=== PATIENT | female | born 1975 | race African-American/Black ===

== ENCOUNTER 2023-01-22 13:15 | Outpatient (AMB) | payer OTHER, SELFPAY ==
--- NOTE | 2023-01-22 13:20 | MHC.PC.OV ---
Vital Signs 01/22/23 13:21 Height 5 ft 7.75 in Weight 202 lb BMI 30.9 BP 125/82 Blood Pressure Location Lt brachial Position Sitting Pulse 85 Pulse Source Pulse Oximeter Pulse Oximetry (%) 100 Oxygen Delivery Method Room Air Intake Visit Reasons: Annual PE Intake Note: Pt is here today for PE. Pt states that she would like to get a referral to [employer]. Allergies hazelnut Allergy (Verified 01/22/23 13:32) deadly allergy moxifloxacin [From Avelox] Allergy (Verified 01/22/23 13:32) severe rash bumps itchiness penicillin V Allergy (Verified 01/22/23 13:32) severe rash bumps Sulfa (Sulfonamide Antibiotics) Allergy (Verified 01/22/23 13:32) Vomiting oatmeal Allergy (Uncoded 01/22/23 13:32) rash Medication List - Last Reconciled 01/22/23 by Geno Ugarte MD cetirizine (Zyrtec) 10 mg PO DAILY PRN Tobacco use date assessed: 01/22/23 Dental Screening Dental Screen Date: 01/22/23 Did you have a dental visit in the last 12 months?: Yes Did you have a dental problem in the last 6 months where you did not have access to dental care?: No Was dental information given to patient?: Patient has dentist HPI Annual PE HPI Details 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 Pt's father and paternal uncle from colon ca last year. Patient had an episode of noticing fresh blood per rectum on the tissue but not mixed with the stool 2 weeks ago. Patient denies abdominal pain constipation or has not had any recurrent symptoms of rectal bleeding. FORMERLY [facility], [facility] Family History (Updated 01/22/23 @ 13:38 by Diya Munoz Brandon) Father Hypertension Colon cancer Mother Hypertension Paternal Grandmother Lung cancer Social History (Updated 01/22/23 @ 14:17 by Geno Ugarte MD) Household Members Other:: lives alone, Housing: House Patient Tobacco Use Status: Never used Tobacco e-Cigarette/Vaping Use: Never Used Current occupational status: employed Cognitive needs: No Hearing needs: No Vision needs: Yes Questionnaire PHQ-9 Over the last 2 weeks, how often have you been bothered by any of the following problems? 1. Little interest or pleasure in doing things: not at all 2. Feeling down, depressed, or hopeless: not at all 3. Trouble falling or staying asleep, or sleeping too much: not at all 4. Feeling tired or having little energy: not at all 5. Poor appetite or overeating: not at all 6. Feeling bad about yourself - or that you are a failure or have let yourself or your family down: not at all 7. Trouble concentrating on things, such as reading the newspaper or watching television: not at all 8. Moving or speaking so slowly that other people could have noticed. Or the opposite - being so fidgety or restless that you have been moving around a lot more than usual: not at all 9. Thoughts that you would be better off or of hurting yourself in some way: not at all Total score: 0 Depression Screening Interpretation: Negative Depression Screening Done: Yes Source: Developed by Drs. Solitario Mejia, Ariana Copeland, Lucas Mcgowan and colleagues, with an educational rick from [employer]. Thrive Questionnaire Date Thrive assessed: 01/22/23 I am a: Patient What is your living situation today?: I have a steady place to live Within the past 12 months, did the food you bought not last and you didn't have the money to get more?: Never true Within the past 12 months, did you worry whether your food would run out before you got money to buy more?: Never true Do you have trouble paying for medicines?: No Do you have trouble getting transportation to medical appointments?: No Do you have trouble paying your heating and electricity bill?: No Do you have trouble taking care of your child, family member or friend?: No Do you have trouble with day-to-day activities such as bathing, preparing meals, shopping, managing finances, etc.?: No Are you currently unemployed and looking for a job?: No Are you interested in more education?: No Please select the resources that you would like help with: None Currently or been in a relationship where the following occur: no concerns reported AUDIT C Alcohol Use Questionnaire (AUDIT-C) 1. How often do you have a drink containing alcohol?: 2-3 times a week 2. How many drinks containing alcohol do you have on a typical day when you are drinking?: 1 or 2 3. How often do you have six or more drinks on one occasion?: Never Total Score: 3 SANFORD-7 AMB Questionnaire SANFORD-7 Date SANFORD - 7 assessed: 01/22/23 Feeling nervous, anxious, or on edge: 0 = Not at all Not being able to stop or control worryin = Not at all Worrying too much about different things: 0 = Not at all Trouble relaxin = Not at all Being so restless that it is hard to sit still: 0 = Not at all Becoming easily annoyed or irritable: 0 = Not at all Feeling afraid as if something awful might happen: 0 = Not at all Total SANFORD-7 score (0-4 normal; 5-9 mild; 10-14 moderate; 15-21 severe): 0 Source: Developed by Drs. Solitario Mejia, Ariana Copeland, Lucas Mcgowan and colleagues, with an educational rick from [employer]. Review of Systems Const All systems reviewed & are unremarkable except as noted in HPI and below Reports no additional complaints Eyes Reports no additional complaints ENT Reports no additional complaints Card Reports no additional complaints Resp Reports no additional complaints GI Reports no additional complaints Reports no additional complaints Physical exam (Primary Care) Vital Signs: Last Vital Signs Pulse 85 01/22/23 13:21 BP 142/82 H 01/22/23 13:21 Pulse Ox 100 01/22/23 13:21 Oxygen Delivery Method Room Air 01/22/23 13:21 BMI result Body Mass Index 30.9 Tobacco/Smoking Status: Tobacco use Status Tobacco use date assessed 01/22/23 01/22/23 13:39 Patient Tobacco Use Status Never used Tobacco 01/22/23 14:17 e-Cigarette/Vaping Use Never Used 01/22/23 14:17 PHQ-9: PHQ-9 Score PHQ-9: Total score 0 01/22/23 14:31 Depression Screening Interpretation: Negative Thrive Assessment: Date of Thrive Assessment Date Thrive assessed 01/22/23 01/22/23 14:31 Currently or been in a relationship where the following occur: no concerns reported Const General: no acute distress HENMT Head: Yes normal to inspection Ears: hearing grossly normal bilaterally Mouth: Normal oral and palatal mucosa present Eyes General: appearance normal, both eyes and all related structures Neck Neck: Yes no lymphadenopathy and Yes supple Resp Effort & Inspection: normal respiratory effort Auscultation: clear to auscultation bilaterally Cardio Rhythm: regular rhythm Heart sounds: S1 normal heart sound present and S2 normal heart sound present GI Inspection: Yes normal to inspection Palpation (GI): Soft to palpation Percussion: Yes normal to percussion Auscultation: normal bowel sounds Assessment and Plan Assessment & Plan (1) Rectal bleeding: Code(s): K62.5 - Hemorrhage of anus and rectum Plan: Referred to GI for colonoscopy. For any recurrent rectal bleeding patient was advised to call (2) Annual physical exam: Code(s): Z00.00 - Encounter for general adult medical examination without abnormal findings Plan: Well-balanced diet regular physical activity discussed with the patient. She will return for fasting blood work. Mammogram will be scheduled. 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 Panel Fast Today K62.5 - Hemorrhage of anus and rectum, Z00.00 - Encounter for general adult medical examination without abnormal findings Follicle Stimulating Hormone Today K62.5 - Hemorrhage of anus and rectum, Z00.00 - Encounter for general adult medical examination without abnormal findings Complete Blood Count Auto Diff Today K62.5 - Hemorrhage of anus and rectum, Z00.00 - Encounter for general adult medical examination without abnormal findings MM screening mammo BI Today Z12.31 - Encounter for screening mammogram for malignant neoplasm of breast Referrals Gastroenterology Referral K62.5 - Hemorrhage of anus and rectum Allergy & Immunology Referral J30.2 - Other seasonal allergic rhinitis Medications: New epinephrine for 2 doses 0.3 mg (0.3 mL) IM Q10M PRN 2 ea 4RF anaphylaxis Coding Level of Care Code New Pt Prev Care 40-64y(08201) Diagnoses Rectal bleeding K62.5 Annual physical exam Z00.00 Seasonal allergies J30.2
[2023-01-22 13:21] VITALS: BP 125/82; PULSE 85; O2SAT 100; BMI 30.9
== END 2023-01-22 15:05 | disposition home or self-care (01) ==
PROVIDERS: PCP Internal Medicine; Visit Provider Internal Medicine
DX: K62.5 Hemorrhage of anus and rectum (principal); Z00.00 Encounter for general adult medical examination without abnormal findings; J30.2 Other seasonal allergic rhinitis
CPT/HCPCS: 99386

== ENCOUNTER 2023-01-25 07:07 | Outpatient (REF) | payer OTHER, SELFPAY ==
[2023-01-25 11:54] LABS: MANUAL DIFF FLAG NO
[2023-01-25 12:03] LABS: Basophils Percent Auto 0.3 % (0-2); Eosinophils Absolute Auto 0.2 X10*3/uL (0.0-0.4); Eosinophils Percent Auto 3.2 % (0-4); Hematocrit 42.7 % (37.0-47.0); Hemoglobin 13.8 g/dl (12.0-16.0); Imm Gran Abs Auto 0.02 X10*3/uL (0.00-0.03); Imm Gran Pct Auto 0.3 % (0.0-0.4); Lymphocytes Absolute Auto 2.3 X10*3/uL (1.2-4.9); Lymphocytes Percent Auto 36.9 % (20-40); Mean Corpuscular HGB Conc 32.3 g/dl (31.0-35.0); Mean Corpuscular Hemoglobin 28.2 pg (27.0-33.0); Mean Corpuscular Volume 87.1 fL (80.0-98.0); Mean Platelet Volume 11.9 fL (9.4-12.3); Monocytes Absolute Auto 0.5 X10*3/uL (0.1-1.2); Monocytes Percent Auto 7.9 % (2-11); Neutrophils Absolute Auto 3.2 x10*3/uL (2.0-8.3); Neutrophils Percent Auto 51.4 % (45-73); Platelet Count 171 X10*3/uL (160-400); White Blood Count 6.2 X10*3/uL (4.8-10.8)
[2023-01-25 13:11] LABS: Alanine Aminotransferase 12 U/L (0-31); Alkaline Phosphatase 60 U/L (39-117); Anion Gap 13 (12-20); Aspartate Amino Transferase 21 U/L (5-31); Bilirubin Total 0.2 mg/dL (0.0-1.0); Blood Urea Nitrogen 14 mg/dL (9-16); Calcium 9.3 mg/dL (8.4-10.2); Carbon Dioxide 24 mmol/L (22-29); Chloride 107 mmol/L (96-108); Cholesterol 224 mg/dL (<200); Estimated Glomerular Filt Rate > 60; Glucose Fasting 86 mg/dL (60-99); HDL Cholesterol 78 mg/dL (>40); LDL Cholesterol Calculated 133 mg/dL (<100); Sodium 140 mmol/L (135-145); Total Protein 7.3 g/dL (6.5-8.0); Triglycerides 68 mg/dL (<150)
[2023-01-25 13:14] LABS: TSH reflex Free T4 0.87 uIU/mL (0.32-4.0)
[2023-01-26 09:34] LABS: Follicle Stimulating Hormone 29.4 mIU/mL
== END 2023-01-25 07:08 | disposition home or self-care (01) ==
LOC: HO.HMGCLDS 07:07
PROVIDERS: PCP Internal Medicine; Visit Provider Internal Medicine
DX: Z00.00 Encounter for general adult medical examination without abnormal findings (principal); K62.5 Hemorrhage of anus and rectum
CPT/HCPCS: 36415; 80053; 80061; 83001; 84443; 85025

== ENCOUNTER 2023-02-07 08:19 | Outpatient (AMB) | payer OTHER, SELFPAY ==
--- NOTE | 2023-02-07 08:32 | MHC.OFFVIS ---
Intake Vital Signs 02/07/23 08:33 Height 5 ft 7.75 in Weight 198 lb 6.656 oz BMI 30.4 BP 122/91 H Blood Pressure Location Lt brachial Position Sitting Pulse 100 Intake Visit Reasons: Colonoscopy Screening Intake Note: Sweta presents in the office as a colonoscopy screening. CC: She states that she has Colon cancer in her family. Allergies pollen extracts Allergy (Mild, Verified 02/07/23 08:46) Unknown tree nut Allergy (Mild, Verified 02/07/23 08:46) Unknown hazelnut Allergy (Verified 02/07/23 08:46) deadly allergy moxifloxacin [From Avelox] Allergy (Verified 02/07/23 08:46) severe rash bumps itchiness penicillin V Allergy (Verified 02/07/23 08:46) severe rash bumps Sulfa (Sulfonamide Antibiotics) Allergy (Verified 02/07/23 08:46) Vomiting raw onions Allergy (Mild, Uncoded 02/07/23 08:46) Unknown seeds Allergy (Mild, Uncoded 02/07/23 08:46) Unknown oatmeal Allergy (Uncoded 02/07/23 08:46) rash Medication List - Last Reconciled 02/07/23 by Guadalupe Mcleod PA-C cetirizine (Zyrtec) 10 mg PO DAILY PRN epinephrine 0.3 mg (0.3 mL) IM Q10M PRN HPI HPI Comments History of Present Illness Details A 47 y/o female referred for screening colonoscopy- episode or rectal bleeding-she has not had any further occurrence-remove she admits to extremely anxiety She had a colonoscopy in her 20s No abdominal pain- normal bowel pattern She eats healthy- she drinks a lot of soda-no acid reflux Her mother has UGI issues- sibs are healthy- No nausea, vomiting, hematemesis, hematochezia fever chills PFSH Surgical History Hx of tooth extraction Hx of arthroscopic knee surgery Hx of colonoscopy Family History Father Hypertension Colon cancer Mother Hypertension Paternal Grandmother Lung cancer Maternal Grandmother Cancer Paternal Uncle Colon cancer Maternal Grandfather Acute basophilic leukemia Paternal Grandmother Lung cancer Family/Other Hodgkin disease Social History Household Members Other:: lives alone, Housing: House Patient Tobacco Use Status: Never used Tobacco e-Cigarette/Vaping Use: Never Used Current occupational status: employed Cognitive needs: No Hearing needs: No Vision needs: Yes Review of Systems Const All systems reviewed & are unremarkable except as noted in HPI and below Card Denies chest pain and Denies dyspnea Resp Denies dyspnea GI Denies abdominal pain, Denies hematochezia, Denies change in bowel habits, Denies heartburn, Denies nausea and Denies vomiting Psych Reports anxiety Physical Exam Vital Signs: Last Vital Signs Pulse 100 02/07/23 08:33 BP 122/91 H 02/07/23 08:33 BMI result Body Mass Index 30.4 Const General: healthy appearing, comfortable and no acute distress Orientation/consciousness: patient oriented x3 Limitations: no limitations Eyes Sclerae: sclerae normal Resp Effort & Inspection: normal respiratory effort and able to speak in complete sentences Auscultation: clear to auscultation bilaterally, no crackles, no rales and no rhonchi Cardio Rate: regular rate (jul) Rhythm: regular rhythm Heart sounds: S1 normal heart sound present and S2 normal heart sound present GI Palpation (GI): Soft to palpation and nontender Auscultation: normal bowel sounds Skin General skin exam: no rashes or lesions noted Neuro General: patient oriented x3 Extrem General: Yes full ROM Psych Appearance: grossly normal and well kempt Mental Status: mental status grossly normal Speech and movement: Pressured speech present Affect: normal affect and Anxious affect present Attitude: cooperative Thought process: Normal thought process present Thought content: Normal thought content present Insight: Good insight present (Psych) Judgement: Good judgement present (Psych) Assessment & Plan Assessment & Plan (1) Rectal bleeding: Comment: may be hemorrhoid Code(s): K62.5 - Hemorrhage of anus and rectum Plan: Index screening colonoscopy Maintain high-fiber diet avoid straining Plan Colonoscopy- MG prep Orders: Orders Colonoscopy - GI Use Only Today K62.5 - Hemorrhage of anus and rectum Medications: New polyethylene glycol 3350 (Miralax) Take as directed by mouth the day before your procedure. 238 grams PO ONCE PRN 238 grams 0RF laxative effect 1 day bisacodyl (Dulcolax (bisacodyl)) Day before procedure, prep day Take 4 tablets by mouth upon awakening followed by large glass of water 20 mg (4 x 5 mg) PO ONCE 4 tabs 0RF colonoscopy prep 1 day Z12.11 - Encounter for screening for malignant neoplasm of colon Patient Instructions: Very anxious, 47-year-old female couple episodes of rectal bleeding now resolved due for index screening colonoscopy Colonoscopy- MG prep-information given Maintain high-fiber Avoid straining Coding Level of Care Code New Pt Level 3 (62584) Diagnoses Rectal bleeding K62.5 Time Spent (min) 30
[2023-02-07 08:33] VITALS: BP 122/91; PULSE 100; BMI 30.4
== END 2023-02-07 09:20 | disposition home or self-care (01) ==
PROVIDERS: PCP Internal Medicine; Visit Provider Physician Assistant
DX: K62.5 Hemorrhage of anus and rectum (principal)
CPT/HCPCS: 99203

== ENCOUNTER → 2023-02-07 08:19 | Outpatient (BNVA) | payer OTHER, SELFPAY | PROVIDERS: PCP Internal Medicine; Visit Provider Physician Assistant ==

== ENCOUNTER 2023-03-08 07:20 | Outpatient (REF) | payer OTHER, SELFPAY ==
--- NOTE | ~2023-03-08 | MM_ITS ---
EXAMINATION: MM SCREENING DIGITAL BREAST TOMOSYNTHESIS, BILATERAL CLINICAL INFORMATION: Screening. Asymptomatic. COMPARISON: Mammography: There are no prior mammograms available for comparison. The patient indicates her last mammogram was in 2013. TECHNIQUE: Digital breast tomosynthesis is performed in both the craniocaudal and mediolateral oblique views along with computer-aided detection (CAD). Synthesized 2D images are generated from the tomosynthesis. FINDINGS: The breasts are heterogeneously dense, which may obscure small masses (ACR BI-RADS breast composition Category c). There are no significant masses, abnormal calcifications, or other abnormalities. MM/MM tomosynthesis screening BI IMPRESSION: No mammographic evidence of malignancy. ASSESSMENT: BI-RADS BI-RADS 1 - Negative RECOMMENDATION: Routine annual mammography screening. 1 year F/U This examination should not preclude the clinical evaluation of a suspicious palpable abnormality. This patient's information was entered into a reminder system with a target due date for their next mammogram.
== END 2023-03-08 07:21 | disposition home or self-care (01) ==
LOC: HO.MAMMO 07:20
PROVIDERS: PCP Internal Medicine; Visit Provider Internal Medicine
DX: Z12.31 Encounter for screening mammogram for malignant neoplasm of breast (principal)
CPT/HCPCS: 77063; 77067

== ENCOUNTER → 2023-03-08 07:30 | Outpatient (BNV) | payer OTHER, SELFPAY | PROVIDERS: PCP Internal Medicine; Visit Provider Radiology Diagnostic Radiology | DX: Z12.31 Encounter for screening mammogram for malignant neoplasm of breast (principal) | CPT/HCPCS: 77063; 77067 ==

== ENCOUNTER 2023-06-06 06:20 | Day surgery (SDC) | payer OTHER, SELFPAY ==
[2023-06-04 11:39] VITALS: BMI 31.0
--- NOTE | 2023-06-05 10:37 | P.CONAN_ITS ---
Documented by User: Juany Amezcua NP 06/05/23 10:38 HPI - Anesthesia Eval Consult details Narrative: 47yo F for Colonoscopy PMFSH Active Problems Active Problems: All Active Problems (Updated 02/07/23 @ 08:45 by Guadalupe Mcleod PA-C) Seasonal allergies (Acute) Annual physical exam (Acute) Rectal bleeding (Acute) Family History Family History Father Hypertension Colon cancer Mother Hypertension Paternal Grandmother Lung cancer Maternal Grandmother Cancer Paternal Uncle Colon cancer Maternal Grandfather Acute basophilic leukemia Paternal Grandmother Lung cancer Family/Other Hodgkin disease Surgical History Surgical History Hx of tooth extraction Hx of arthroscopic knee surgery Hx of colonoscopy Social History Social History Household Members Other:: lives alone, Housing: House Patient Tobacco Use Status: Never used Tobacco e-Cigarette/Vaping Use: Never Used Use of substances other than those prescribed or required for medical reasons: No Are you DNR?: No Advance Directives: No Advance Directives Information Provided: Yes Current occupational status: employed Cognitive needs: No Hearing needs: No Vision needs: Yes Meds Allergies Allergy/AdvReac Type Severity Reaction Status Date / Time pollen extracts Allergy Mild Unknown Verified 06/06/23 06:37 tree nut Allergy Mild Unknown Verified 06/06/23 06:37 hazelnut Allergy deadly Verified 06/06/23 06:37 allergy moxifloxacin [From Avelox] Allergy severe Verified 06/06/23 06:37 rash bumps itchiness penicillin V Allergy severe Verified 06/06/23 06:37 rash bumps Sulfa (Sulfonamide Allergy Vomiting Verified 06/06/23 06:37 Antibiotics) raw onions Allergy Mild Unknown Uncoded 02/07/23 08:46 seeds Allergy Mild Unknown Uncoded 02/07/23 08:46 oatmeal Allergy rash Uncoded 02/07/23 08:46 Home Medications Medication Instructions Recorded Confirmed Last Taken Type cetirizine 10 mg capsule (Zyrtec) 10 mg PO DAILY PRN Allergic 01/22/23 06/06/23 Unknown History Symptoms Exam Height,Weight and Vital Signs: Height 5 ft 7 in Weight 89.811 kg Pertinent Lab Results Pertinent Lab Results: Laboratory Tests 01/25/23 07:18 WBC 6.2 Hgb 13.8 Hct 42.7 Plt Count 171 Sodium 140 Potassium 4.0 Chloride 107 Carbon Dioxide 24 BUN 14 Creatinine 0.86 Assessment and Plan Assessment Anesthesia Assessment: Chart Reviewed Documented by User: Vahid Curran MD 06/06/23 07:04 FORMERLY [facility] Past Medical History Functional capacity: independent ambulation Patient : No Family History Family History Father Hypertension Colon cancer Mother Hypertension Paternal Grandmother Lung cancer Maternal Grandmother Cancer Paternal Uncle Colon cancer Maternal Grandfather Acute basophilic leukemia Paternal Grandmother Lung cancer Family/Other Hodgkin disease Family history of problems with anesthesia: No Surgical History Surgical History Hx of tooth extraction Hx of arthroscopic knee surgery Hx of colonoscopy History of Problems with Anesthesia: No Social History Social History Household Members Other:: lives alone, Housing: House Patient Tobacco Use Status: Never used Tobacco e-Cigarette/Vaping Use: Never Used Use of substances other than those prescribed or required for medical reasons: No Are you DNR?: No Advance Directives: No Advance Directives Information Provided: Yes Current occupational status: employed Cognitive needs: No Hearing needs: No Vision needs: Yes Meds Allergies Allergy/AdvReac Type Severity Reaction Status Date / Time pollen extracts Allergy Mild Unknown Verified 06/06/23 06:37 tree nut Allergy Mild Unknown Verified 06/06/23 06:37 hazelnut Allergy deadly Verified 06/06/23 06:37 allergy moxifloxacin [From Avelox] Allergy severe Verified 06/06/23 06:37 rash bumps itchiness penicillin V Allergy severe Verified 06/06/23 06:37 rash bumps Sulfa (Sulfonamide Allergy Vomiting Verified 06/06/23 06:37 Antibiotics) raw onions Allergy Mild Unknown Uncoded 02/07/23 08:46 seeds Allergy Mild Unknown Uncoded 02/07/23 08:46 oatmeal Allergy rash Uncoded 02/07/23 08:46 Home Medications Medication Instructions Recorded Confirmed Last Taken Type cetirizine 10 mg capsule (Zyrtec) 10 mg PO DAILY PRN Allergic 01/22/23 06/06/23 Unknown History Symptoms Exam Airway Mallampati Class: I TM Dist: >3cm Neck ROM: Full Loose/Missing/Broken Teeth: No Heart: rrr Lungs: cta b/l Assessment and Plan Assessment Anesthesia Assessment: Anesthesia Plan Discussed and Chart Reviewed Final Anesthetic Review Family History of Problems with Anesthesia: No History of Problems with Anesthesia: No NPO: Yes ASA Class: I Final Preanesthetic Review: No Changes in Pt Med Stat, Meds/Allgs Chart Reviewed, Consent Obtained/Reviewed and Anes Risks/Benef Reviewed Patient Risk: Low Procedure Risk: Low Anesthetic Plan Anesthetic Plan: MAC: Disposition: Standard PACU
[2023-06-06 06:38] VITALS: BMI 30.6
--- NOTE | 2023-06-06 06:38 | MHC.SHP ---
Pre-Procedural Eval Section A - 24 Hr Update-Section A only Date of Service: 06/06/23 Section B - Complete if H&P > 30 days Chief Complaint: screening Details of Present Illness: second deg realtives with colon cancer Relevant Family History (Specify if Yes): Yes Relevant Social History: None Present Medications: see Short Stay Collaborative assessment Medical History: Significant History (allergies-seasonal) History of Previous Operations: Relevant previous surgery/procedure and date(s) (Hx of tooth extraction Hx of arthroscopic knee surgery Hx of colonoscopy) Allergies: Allergies Allergy/AdvReac Type Severity Reaction Status Date / Time pollen extracts Allergy Mild Unknown Verified 06/06/23 06:37 tree nut Allergy Mild Unknown Verified 06/06/23 06:37 hazelnut Allergy deadly Verified 06/06/23 06:37 allergy moxifloxacin [From Avelox] Allergy severe Verified 06/06/23 06:37 rash bumps itchiness penicillin V Allergy severe Verified 06/06/23 06:37 rash bumps Sulfa (Sulfonamide Allergy Vomiting Verified 06/06/23 06:37 Antibiotics) raw onions Allergy Mild Unknown Uncoded 02/07/23 08:46 seeds Allergy Mild Unknown Uncoded 02/07/23 08:46 oatmeal Allergy rash Uncoded 02/07/23 08:46 Review of Systems Sugical H&P ROS: Negative: Constitution, Cardiovascular, Respiratory, Neurological, Psychiatric, Hem-Onc, Allergic/Immunologic, Gastrointestinal, Genitourinary, Musculoskeletal, Integumentary, Endocrine and Eyes/Ears/Nose/Throat Exam Surgical H&P Exam: Normal: HEENT, Normal: Heart, Normal: Lungs, Normal: Extremities, Normal: Abdomen, Normal: Skin and Normal: Neurological Plan Diagnosis/Plan: Unchanged I have reviewed the history and physical and performed a pertinent physical examination on my patient. No changes have occurred unless specified. Time Spent With Patient Time: Total time managing care of this patient today ____ minutes.
[2023-06-06 06:47] VITALS: BP 141/94; PULSE 102; RESP 15; TEMP 36.5; O2SAT 98
[2023-06-06] MEDS: Lactated Ringers 1,000 ML 100 ML IVCONT (07:07)
[2023-06-06 07:11] LABS: UPreg QC Valid YES; Urine Pregnancy NEGATIVE (NEGATIVE)
--- NOTE | 2023-06-06 07:42 | P.OP_ITS ---
Operative Note Operative Note Date of Service: 06/06/23 Narrative: Operative Information Procedure Description: Colonoscopy Indication: screening Anesthesia: MAC COLONOSCOPY Instrument: Olympus variable stiffness pediatric scope 190L Colonoscopy Monitoring: Vital signs and clinical assessment, continuous EKG monitoring, Pulse oximetry, Carbon Dioxide monitoring and blood pressure monitoring were done throughout the procedure. Colon withdrawal time was 10 minutes. Procedure: The patient was placed in the left lateral decubitis position and pre-procedure medications were administered. After a digital rectal examination of the ano-rectum, the video colonoscope was inserted into the rectum and advanced through the colon to the cecum/TI. The colonoscope was slowly withdrawn in a retrograde panoramic fashion and the colon mucosa was carefully examined including a retroflexed view of the rectum. Findings and interventions are described below. Procedure Difficulty: easy Findings: Terminal Ileum-normal Cecum:normal Ascending Colon: normal Transverse Colon -normal Descending Colon:normal Sigmoid Colon: 15-18 mm pedunculated polyp noted in distal sigmoid, injected with epinephrine then removed with hot snare with x 2 clips applied for hemostasis. Rectum: Retroflexion with small internal hemorrhoids, grade I Anorectum - normal Colon preparation: [place] Bowel Preparation Scale Right colon; 2 Transverse colon: 3 Left colon; 3 (0 = Unprepared colon segment with mucosa not seen due to solid stool that cannot be cleared. 1 = Portion of mucosa of the colon segment seen, but other areas of the colon segment not well seen due to staining, residual stool and/or opaque liquid. 2 = Minor amount of residual staining, small fragments of stool and/or opaque liquid, but mucosa of colon segment seen well. 3 = Entire mucosa of colon segment seen well with no residual staining, small fragments of stool or opaque liquid) Impression and Post Procedure Diagnosis: polyp internal hemorrhoids Plan: High fiber diet leaflet Avoid straining at stool, epsom salts and sitz bath, anusol supps or cream Repeat Colonoscopy in 3 years due to polyp or earlier if clinically indicated Above findings were reviewed with the patient and relevant handouts were provided if indicated.
[2023-06-06 08:13] VITALS: BP 108/69; PULSE 83; RESP 16; TEMP 36.3; O2SAT 97
[2023-06-06 08:28] VITALS: BP 115/79; PULSE 77; RESP 16; O2SAT 98
--- NOTE | 2023-06-06 08:32 | PC.NURSE ---
dr. be requested me to open up intelviewer so he could show the patient the polyp that he did remove. dr. be at bedside with patient.
[2023-06-06 08:43] VITALS: BP 111/75; PULSE 66; RESP 16; TEMP 36.3; O2SAT 99
== END 2023-06-06 09:10 | disposition home or self-care (01) ==
PROVIDERS: Nurse Practitioner; PCP Internal Medicine; Visit Provider Internal Medicine Gastroenterology
PROC: 0DJD8ZZ Inspection of Lower Intestinal Tract, Via Natural or Artificial Opening Endoscopic (ICD-10-PCS; CPT 45378; principal; 2023-06-06 07:30)
DX: Z12.11 Encounter for screening for malignant neoplasm of colon (principal); Z80.0 Family history of malignant neoplasm of digestive organs; D12.5 Benign neoplasm of sigmoid colon; K64.0 First degree hemorrhoids; J30.2 Other seasonal allergic rhinitis; Z79.899 Other long term (current) drug therapy; Z88.1 Allergy status to other antibiotic agents; Z88.2 Allergy status to sulfonamides
CPT/HCPCS: 45385; 45381; 81025; 88305; J0171; J2250; J2704

== ENCOUNTER → 2023-06-06 06:20 | Outpatient (BNV) | payer OTHER, SELFPAY | PROVIDERS: PCP Internal Medicine; Visit Provider Internal Medicine Gastroenterology | DX: Z12.11 Encounter for screening for malignant neoplasm of colon (principal); K63.5 Polyp of colon; K64.8 Other hemorrhoids; Z80.9 Family history of malignant neoplasm, unspecified | CPT/HCPCS: 45385 ==

== ENCOUNTER 2023-06-20 10:16 | Outpatient (AMB) | payer OTHER, SELFPAY ==
--- NOTE | 2023-06-20 10:19 | MHC.OFFVIS ---
Intake Vital Signs 06/20/23 10:27 BP 150/91 H Blood Pressure Location Lt brachial Position Sitting Pulse 92 Intake Visit Reasons: S/P [place]; Dr. Shaffer Intake Note: Sweta presents in the office as a follow up colonoscopy. CC: She states that she is concerned cause she has colon cancer in her family. Medical Office Secretary Required: No Allergies pollen extracts Allergy (Mild, Verified 06/20/23 10:23) Unknown tree nut Allergy (Mild, Verified 06/20/23 10:23) Unknown hazelnut Allergy (Verified 06/20/23 10:23) deadly allergy moxifloxacin [From Avelox] Allergy (Verified 06/20/23 10:23) severe rash bumps itchiness penicillin V Allergy (Verified 06/20/23 10:23) severe rash bumps Sulfa (Sulfonamide Antibiotics) Allergy (Verified 06/20/23 10:23) Vomiting raw onions Allergy (Mild, Uncoded 06/20/23 10:23) Unknown seeds Allergy (Mild, Uncoded 06/20/23 10:23) Unknown oatmeal Allergy (Uncoded 06/20/23 10:23) rash HPI HPI Comments History of Present Illness Details A 47 y/o female her after colonoscopy- she is extremely emotional-with fears for cancer-multiple cancers in the family- she admits to extreme anxiety-she is the oldest her family feels responsible Father had colon/ bladder cancer- Mother lung cancer MGF- CRC Puncle -CRC/ breast- Reviewed procedure report, path and recommendations- she became very anxious- crying-\ Discussed pathophysiology colon polyp/colon cancer- Reviewed again pathology report in detail Discussed high fiber diet-she has many food allergies-very picky as to what to add- She has no nausea, vomiting, hematemesis, hematochezia fever chills PFSH Surgical History Hx of tooth extraction Hx of arthroscopic knee surgery Hx of colonoscopy Family History Father Hypertension Colon cancer Mother Hypertension Paternal Grandmother Lung cancer Maternal Grandmother Cancer Paternal Uncle Colon cancer Maternal Grandfather Acute basophilic leukemia Paternal Grandmother Lung cancer Family/Other Hodgkin disease Social History Household Members Other:: lives alone, Housing: House Patient Tobacco Use Status: Never used Tobacco e-Cigarette/Vaping Use: Never Used Current occupational status: employed Cognitive needs: No Hearing needs: No Vision needs: Yes Review of Systems Const All systems reviewed & are unremarkable except as noted in HPI and below Card Denies chest pain and Denies dyspnea Resp Denies dyspnea Psych Reports anxiety Physical Exam Vital Signs: Last Vital Signs Pulse 92 06/20/23 10:27 BP 150/91 H 06/20/23 10:27 Const General: cooperative, healthy appearing and anxious Orientation/consciousness: patient oriented x3 Limitations: no limitations Eyes Other: Tearful Resp Effort & Inspection: normal respiratory effort and able to speak in complete sentences Skin General skin exam: no rashes or lesions noted Neuro General: patient oriented x3 Extrem General: Yes full ROM Psych Appearance: grossly normal and well kempt Speech and movement: Clear speech present Affect: Animated affect present and Anxious affect present Thought content: Phobia(s) present Results Reviewed Results Reviewed: Sigmoid Colon: 15-18 mm pedunculated polyp noted in distal sigmoid, injected with epinephrine then removed with hot snare with x 2 clips applied for hemostasis. Rectum: Retroflexion with small internal hemorrhoids, grade I Anorectum - normal Colon preparation: [place] Bowel Preparation Scale Right colon; 2 Transverse colon: 3 Left colon; 3 (0 = Unprepared colon segment with mucosa not seen due to solid stool that cannot be cleared. 1 = Portion of mucosa of the colon segment seen, but other areas of the colon segment not well seen due to staining, residual stool and/or opaque liquid. 2 = Minor amount of residual staining, small fragments of stool and/or opaque liquid, but mucosa of colon segment seen well. 3 = Entire mucosa of colon segment seen well with no residual staining, small fragments of stool or opaque liquid) Impression and Post Procedure Diagnosis: polyp internal hemorrhoids Plan: High fiber diet leaflet Avoid straining at stool, epsom salts and sitz bath, anusol supps or cream Repeat Colonoscopy in 3 years due to polyp or earlier if clinically indicated yasmin: Sweta Sanchez Age/Sex: 47/F Attending: Genoveva Shaffer MD : 1975 Submitted by: Genoveva Shaffer MD Copies to: Geno Ugarte MD MR #: [id number] Status: [facility] Collected: 06/06/23 Location: [facility] Received: 06/06/23 Diagnosis Colon, sigmoid, polypectomy: Tubular adenoma; negative for high-grade dysplasia or carcinoma. Clinical History Pre-Op Dx: Screening Post-Op Dx: Colon polyp, internal hemorrhoids. Microscopic Description Microscopic sections reviewed. Material Received Sigmoid polyp Gross Description Received in formalin labeled ?sigmoid polyp? is a 1.2 x 1.2 x 0.9 cm congested and hemorrhagic red- maroon pedunculated polyp with an attached 1.0 cm in length and 0.6 cm in diameter de la torre stalk. The resected base is inked and the specimen is sectioned and entirely submitted in a cassette labeled A. CEDS Copies To Geno Ugarte MD [address] [place] [address] Dr. Fabiola [place] [id number] Genoveva Shaffer MD [address] [place] [address] Dr. Elsa MA [id number] NOTE: Unless otherwise stated, all tissue is formalin-fixed and paraffin-embedded. Some or all of the immunohistochemical tests reported herein may have been developed and their performance characteristics determined by [facility]. They have not been cleared or approved by the U.S. Food and Drug Administration (FDA). However, the FDA has determined that such clearance or approval is not necessary. This laboratory is certified under the Clinical Laboratory Improvement Amendments of 1988 (CLIA) as qualified to perform high complexity clinical laboratory testing. Electronically Signed By: Larry Dia MD 06/07/23 1218 Patient: Sweta Sanchez Age/Sex: 47/F MR#: [id number] Page 1 of 1 Assessment & Plan Assessment & Plan (1) Cancer phobia: Comment: Multiple family history cancer-extremely anxious Reviewed family history-seems to be candidate for genetic testing will send for eval-hopefully this offered her reassurance- Code(s): F40.298 - Other specified phobia Plan: refer for eval genetic testing-as there expertise will serve her well (2) Tubular adenoma: Comment: No dysplasia, no carcinoma Code(s): D36.9 - Benign neoplasm, unspecified site Plan: Review Colonoscopy [address] Shaffer (3) Anxiety: Comment: May likely benefit from formal eval, support Gave her opportunity to ask questions was very receptive- Code(s): F41.9 - Anxiety disorder, unspecified Plan: Reassurance, support (4) Hemorrhoids: Code(s): K64.9 - Unspecified hemorrhoids Plan: Maintain high-fiber Avoid straining Plan genetic testing- referral sent- seems to fit criteria- Patient Instructions: Repeat asymptomatic colonoscopy 1year We have scheduled her an appointment, for an office visit, to be seen in 9 months-to keep her on schedule She is aware referral was sent for evaluation for genetic testing Reviewed high-fiber diet, menu choices literature given She may trial to fiber gummies the have been beneficial Encouraged to call with any questions or concerns Coding Level of Care Code New Pt Level 4 (01977) Diagnoses Cancer phobia F40.298 Tubular adenoma D36.9 Anxiety F41.9 Hemorrhoids K64.9 Time Spent (min) 30
[2023-06-20 10:27] VITALS: BP 150/91; PULSE 92
== END 2023-06-20 11:01 | disposition home or self-care (01) ==
PROVIDERS: PCP Internal Medicine; Visit Provider Physician Assistant
DX: D12.5 Benign neoplasm of sigmoid colon (principal); K64.0 First degree hemorrhoids; F40.298 Other specified phobia; F41.9 Anxiety disorder, unspecified
CPT/HCPCS: 99214

== ENCOUNTER → 2023-06-20 10:16 | Outpatient (BNVA) | payer OTHER, SELFPAY | PROVIDERS: PCP Internal Medicine; Visit Provider Physician Assistant ==

== ENCOUNTER 2024-03-23 10:29 | Outpatient (AMB) | payer OTHER, SELFPAY ==
--- NOTE | 2024-03-23 11:02 | MHC.OFFWIV ---
Intake Vital Signs 03/23/24 11:03 Weight 199 lb BP 122/80 Blood Pressure Location Rt brachial Pulse 89 Pulse Source Pulse Oximeter Pulse Oximetry (%) 98 Oxygen Delivery Method Room Air Intake Visit Reasons: EP no voice, ear hurt, congestion Intake Note: Patient here for congestion,post nasal drip, raspy voice and right ear pain. Patient Tobacco Use Status: Never used Tobacco Allergies pollen extracts Allergy (Mild, Verified 03/23/24 11:06) Unknown tree nut Allergy (Mild, Verified 03/23/24 11:06) Unknown hazelnut Allergy (Verified 03/23/24 11:06) deadly allergy moxifloxacin [From Avelox] Allergy (Verified 03/23/24 11:06) severe rash bumps itchiness penicillin V Allergy (Verified 03/23/24 11:06) severe rash bumps Sulfa (Sulfonamide Antibiotics) Allergy (Verified 03/23/24 11:06) Vomiting raw onions Allergy (Mild, Uncoded 03/23/24 11:06) Unknown seeds Allergy (Mild, Uncoded 03/23/24 11:06) Unknown oatmeal Allergy (Uncoded 03/23/24 11:06) rash Do you need a note to return to daycare/school/sports/work: No HPI EP no voice, ear hurt, congestion HPI Details This note is constructed using voice recognition software. While every effort has been made to ensure accuracy, consulting solution manager errors may have been included. The patient is a 48 year old female who presents to the clinic today with ear pressure, intermittent reduced voice and sinus congestion for the past 6 days. She denies fever, chills, shortness of breath, she does have a dry cough. She does report that she has a history of allergies, typically in the spring and fall. What she usually does as she takes Zyrtec for the spring, then tapers off when the spring as over, going back on in the fall, tapering off again. She rarely use of Flonase. She reports that she recently restarted her Zyrtec and did take some Flonase last week. She felt that it helped some. But has not completely resolve it. [facility] Surgical History Hx of tooth extraction Hx of arthroscopic knee surgery Hx of colonoscopy Family History Father Hypertension Colon cancer Mother Hypertension Paternal Grandmother Lung cancer Maternal Grandmother Cancer Paternal Uncle Colon cancer Maternal Grandfather Acute basophilic leukemia Paternal Grandmother Lung cancer Family/Other Hodgkin disease Social History Household Members Other:: lives alone, Housing: House Patient Tobacco Use Status: Never used Tobacco e-Cigarette/Vaping Use: Never Used Current occupational status: employed Cognitive needs: No Hearing needs: No Vision needs: Yes Review of Systems Const All systems reviewed & are unremarkable except as noted in HPI and below Physical Exam Vital Signs: Last Vital Signs Pulse 89 03/23/24 11:03 BP 122/80 03/23/24 11:03 Pulse Ox 98 03/23/24 11:03 Oxygen Delivery Method Room Air 03/23/24 11:03 Const General: cooperative, healthy appearing, comfortable and no acute distress Orientation/consciousness: patient oriented x3 Limitations: no limitations HEENT Head: Yes normal to inspection Ears: hearing grossly normal bilaterally, external ears normal and TM abnormal retracted General nose exam: Normal external nose present, No nasal discharge present and Abnormal mucous membranes and turbinates present boggy and pale Face and sinus: Yes normal facial exam and Yes sinuses nontender Mouth: Normal oral and palatal mucosa present and moist mucous membranes Throat: Yes tonsils normal, Yes uvula midline, Yes posterior oropharynx abnormal (Erythema), Yes postnasal drainage and Yes cobblestoning Eyes General: appearance normal, both eyes and all related structures Neck Neck: Yes normal visual inspection Resp Effort & Inspection: normal respiratory effort, able to speak in complete sentences, Actively coughing, no respiratory distress, not tachypneic, no tripod positioning and no use of accessory muscles Auscultation: clear to auscultation bilaterally Cardio Rate: regular rate Rhythm: regular rhythm Heart sounds: normal S1 and S2 Skin General skin exam: no rashes or lesions noted Neuro General: patient oriented x3 Extrem General: Yes normal to inspection and Yes no clubbing, cyanosis or edema Assessment & Plan Assessment & Plan (1) Seasonal allergies: Code(s): J30.2 - Other seasonal allergic rhinitis Plan: Supportive measures encouraged and reviewed. Advised patient to try a Flonase nasal spray and second-generation antihistamine such as Zyrtec, Claritin, Pam or similar. Advised consideration of sinus rinse if needed. Advised patient to follow up with primary care provider with worsening or failure to resolve. Plan See above for full details and plan. Coding Level of Care Code Est Pt Level 3 (01367) Diagnoses Seasonal allergies J30.2
[2024-03-23 11:03] VITALS: BP 122/80; PULSE 89; O2SAT 98
== END 2024-03-23 11:30 | disposition home or self-care (01) ==
PROVIDERS: PCP Internal Medicine; Visit Provider Registered Nurse
DX: J30.2 Other seasonal allergic rhinitis (principal)

== ENCOUNTER 2024-11-11 09:40 | Outpatient (AMB) | payer OTHER, SELFPAY ==
[2024-11-11 11:00] VITALS: BP 114/78; PULSE 84; TEMP 36.7; O2SAT 99; BMI 29.9
--- NOTE | 2024-11-11 11:00 | AM.OFFWIN_ITS ---
Intake Vital Signs 11/11/24 11:00 Height 5 ft 7.5 in Weight 194 lb BMI 29.9 BP 114/78 Blood Pressure Location Lt brachial Position Sitting Pulse 84 Pulse Source Pulse Oximeter Temp 98.1 F Temp Source Oral Pulse Oximetry (%) 99 Oxygen Delivery Method Room Air Intake Visit Reasons: EP Ear infection [phone] Patient Tobacco Use Status: Never used Tobacco Medical Record Technician Required: No Is last menstrual period known: No Post menopausal: Yes Patient : No Allergies pollen extracts Allergy (Mild, Verified 11/11/24 11:06) Unknown tree nut Allergy (Mild, Verified 11/11/24 11:06) Unknown hazelnut Allergy (Verified 11/11/24 11:06) deadly allergy moxifloxacin (From Avelox) Allergy (Verified 11/11/24 11:06) severe rash bumps itchiness penicillin V Allergy (Verified 11/11/24 11:06) severe rash bumps Sulfa (Sulfonamide Antibiotics) Allergy (Verified 11/11/24 11:06) Vomiting raw onions Allergy (Mild, Uncoded 03/23/24 11:06) Unknown seeds Allergy (Mild, Uncoded 03/23/24 11:06) Unknown oatmeal Allergy (Uncoded 03/23/24 11:06) rash Do you need a note to return to daycare/school/sports/work: Yes HPI HPI Comments History of Present Illness Details History - The patient is a 49-year-old female pr esenting with right ear discomfort. - The discomfort is localized to the rig ht ear with no associated cold symptoms or sinus pressure. - She feels a pressure and like it needs to pop. - The patient has a history of allergies , which have been fluctuating. - She has been using Flonase and Pam for allergy management, with a strategy to taper off during non-peak seasons. - The patient has not seen an ENT specia list but is considering a referral due to persistent symptoms. - She denies fever, chills, sore throat, cough, congestion, MONTOYA, dizziness, or hearing loss. Physical Exam General: Cooperative, healthy appearing, comfortable, no acute distress and well developed Head: Normal to inspection Ears: External ears normal bilaterally. No tragus or mastoid tenderness noted. Cerumen noted in the canal. TM's not visualized. No discharge noted. Face and sinus: Normal facial exam. No TTP of the sinuses. Neck: Normal visual inspection. Full ROM. No lymphadenopathy noted. Respiratory: Normal respiratory effort and able to speak in complete sentences. Clear to auscultation bilaterally. No w/r/r noted. Cardiac: RRR, no m/r/g noted. Normal S1 and S2 noted. Skin: No rashes or lesions noted Neuro: Patient oriented x3 Patient was informed and verbally consented to the use of an ambient scribe for clinic note documentation during this visit. [facility] Surgical History Hx of tooth extraction Hx of arthroscopic knee surgery Hx of colonoscopy Family History Father Hypertension Colon cancer Mother Hypertension Paternal Grandmother Lung cancer Maternal Grandmother Cancer Paternal Uncle Colon cancer Maternal Grandfather Acute basophilic leukemia Paternal Grandmother Lung cancer Family/Other Hodgkin disease Social History Household Members Other:: lives alone, Housing: House Patient Tobacco Use Status: Never used Tobacco e-Cigarette/Vaping Use: Never Used Patient : No Current occupational status: employed Cognitive needs: No Hearing needs: No Vision needs: Yes Review of Systems Const All systems reviewed & are unremarkable except as noted in HPI and below Physical Exam Vital Signs: Last Vital Signs Temp 98.1 F 11/11/24 11:00 Pulse 84 11/11/24 11:00 BP 114/78 11/11/24 11:00 Pulse Ox 99 11/11/24 11:00 Oxygen Delivery Method Room Air 11/11/24 11:00 BMI result Body Mass Index 29.9 Assessment & Plan Assessment & Plan (1) Right ear pain: Code(s): H92.01 - Otalgia, right ear Plan Most likely allergies vs OE vs OM vs cerumen vs ET dysfunction Plan - will refer her to ENT - Plan to monitor symptoms - Continue current allergy management with Flonase and Pam, adjusting as needed based on symptom severity. Orders: Referrals Ear/Nose/Throat Referral H92.01 - Otalgia, right ear Coding Level of Care Code Est Pt Level 3 (70013) Diagnoses Right ear pain H92.01
== END 2024-11-11 12:08 | disposition home or self-care (01) ==
PROVIDERS: PCP Internal Medicine; Visit Provider Physician Assistant Medical
DX: H92.01 Otalgia, right ear (principal)

== ENCOUNTER 2025-01-07 09:22 | Outpatient (AMB) | payer OTHER, SELFPAY ==
--- NOTE | 2025-01-07 09:24 | ...WebTmpl.AM.EDVIS ---
Intake Visit Reasons: PE and pap Allergies pollen extracts Allergy (Mild, Verified 11/11/24 11:06) Unknown tree nut Allergy (Mild, Verified 11/11/24 11:06) Unknown hazelnut Allergy (Verified 11/11/24 11:06) deadly allergy moxifloxacin (From Avelox) Allergy (Verified 11/11/24 11:06) severe rash bumps itchiness penicillin V Allergy (Verified 11/11/24 11:06) severe rash bumps Sulfa (Sulfonamide Antibiotics) Allergy (Verified 11/11/24 11:06) Vomiting raw onions Allergy (Mild, Uncoded 03/23/24 11:06) Unknown seeds Allergy (Mild, Uncoded 03/23/24 11:06) Unknown oatmeal Allergy (Uncoded 03/23/24 11:06) rash
[2025-01-07 09:30] VITALS: BP 128/88; PULSE 102; RESP 19; TEMP 37; O2SAT 98; BMI 30.6
--- NOTE | 2025-01-07 09:30 | A.OFFPC_ITS ---
Vital Signs 01/07/25 09:30 Height 5 ft 7.5 in Weight 198 lb BMI 30.6 BP 128/88 Blood Pressure Location Lt brachial Position Sitting Respiration 19 Pulse 102 H Pulse Source Pulse Oximeter Temp 98.6 F Temp Source Oral Pulse Oximetry (%) 98 Oxygen Delivery Method Room Air Intake Visit Reasons: PE and pap Intake Note: Pt is here today for PE and pap. Pt states that she has been exercising and she started having pain in her L knee and she is having pain on the buttom of her feet. Pt also states that she has a cold cogestion and cough. Allergies pollen extracts Allergy (Mild, Verified 01/07/25 09:30) Unknown tree nut Allergy (Mild, Verified 01/07/25 09:30) Unknown hazelnut Allergy (Verified 01/07/25 09:30) deadly allergy moxifloxacin (From Avelox) Allergy (Verified 01/07/25 09:30) severe rash bumps itchiness penicillin V Allergy (Verified 01/07/25 09:30) severe rash bumps Sulfa (Sulfonamide Antibiotics) Allergy (Verified 01/07/25 09:30) Vomiting raw onions Allergy (Mild, Uncoded 01/07/25 09:30) Unknown seeds Allergy (Mild, Uncoded 01/07/25 09:30) Unknown oatmeal Allergy (Uncoded 01/07/25 09:30) rash Medication List - Last Reconciled 01/07/25 by Geno Ugarte MD cetirizine (Zyrtec) 10 mg PO DAILY PRN epinephrine 0.3 mg (0.3 mL) IM Q10M PRN Tobacco use date assessed: 01/07/25 Dental Screening Dental Screen Date: 01/07/25 Did you have a dental visit in the last 12 months?: Yes Did you have a dental problem in the last 6 months where you did not have access to dental care?: No Was dental information given to patient?: Patient has dentist HPI PE and pap HPI Details Patient presents for a physical. She is upset because she lost her job last month but has been coping well. Patient complains of seasonal allergy nasal congestion sneezing intermittent cough but denies fever chills sputum production. Patient has been taking [id number] Zyrtec and occasionally decongestant with expectorant. [facility] Medical History (Updated 01/07/25 @ 11:55 by Geno Ugarte MD) Knee pain, left Annual physical exam Tubular adenoma Seasonal allergies Anxiety Surgical History (Updated 01/07/25 @ 11:55 by Geno Ugarte MD) Hx of tooth extraction Hx of arthroscopic knee surgery Hx of colonoscopy Family History Father Hypertension Colon cancer Mother Hypertension Paternal Grandmother Lung cancer Maternal Grandmother Cancer Paternal Uncle Colon cancer Maternal Grandfather Acute basophilic leukemia Paternal Grandmother Lung cancer Family/Other Hodgkin disease Social History Household Members Other:: lives alone, Housing: House Patient Tobacco Use Status: Never used Tobacco e-Cigarette/Vaping Use: Never Used service: No Current occupational status: employed Cognitive needs: No Hearing needs: No Vision needs: Yes Questionnaire PHQ-9 Over the last 2 weeks, how often have you been bothered by any of the following problems? 1. Little interest or pleasure in doing things: not at all 2. Feeling down, depressed, or hopeless: several days 3. Trouble falling or staying asleep, or sleeping too much: several days 4. Feeling tired or having little energy: several days 5. Poor appetite or overeating: several days 6. Feeling bad about yourself - or that you are a failure or have let yourself or your family down: several days 7. Trouble concentrating on things, such as reading the newspaper or watching television: several days 8. Moving or speaking so slowly that other people could have noticed. Or the opposite - being so fidgety or restless that you have been moving around a lot more than usual: not at all 9. Thoughts that you would be better off or of hurting yourself in some way: not at all Total score: 6 Depression Screening Interpretation: Negative Depression Screening Done: Yes 19277 - PHQ-9 Billing: Yes Source: Developed by Drs. Solitario Mejia, Ariana Copeland, Lucas Mcgowan and colleagues, with an educational rick from [employer]. Thrive Questionnaire Date Thrive assessed: 01/07/25 I am a: Patient What is your living situation today?: I have a place to live, but I am worried about losing it in the future Within the past 12 months, did the food you bought not last and you didn't have the money to get more?: Never true Within the past 12 months, did you worry whether your food would run out before you got money to buy more?: Never true Do you have trouble paying for medicines?: No Do you have trouble getting transportation to medical appointments?: No Do you have trouble paying your heating and electricity bill?: Yes Do you have trouble taking care of your child, family member or friend?: No Do you have trouble with day-to-day activities such as bathing, preparing meals, shopping, managing finances, etc.?: No Are you currently unemployed and looking for a job?: Yes Are you interested in more education?: No Please select the resources that you would like help with: None Currently or been in a relationship where the following occur: No concerns reported THRIVE Score: 2 AUDIT C Alcohol Use Questionnaire (AUDIT-C) 1. How often do you have a drink containing alcohol?: 2-4 times a month 2. How many drinks containing alcohol do you have on a typical day when you are drinking?: 1 or 2 3. How often do you have six or more drinks on one occasion?: Never Total Score: 2 SNAFORD-7 AMB Questionnaire SANFORD-7 Date SANFORD - 7 assessed: 01/07/25 Feeling nervous, anxious, or on edge: 0 = Not at all Not being able to stop or control worryin = Not at all Worrying too much about different things: 1 = Several days Trouble relaxin = Several days Being so restless that it is hard to sit still: 0 = Not at all Becoming easily annoyed or irritable: 1 = Several days Feeling afraid as if something awful might happen: 0 = Not at all Total SANFORD-7 score (0-4 normal; 5-9 mild; 10-14 moderate; 15-21 severe): 3 Source: Developed by Drs. Solitario Mejia, Ariana Copeland, Lucas Mcgowan and colleagues, with an educational rick from [employer]. SANFORD-7 Assessment Billing SANFORD-7 Assessment Tool: SANFORD-7 Assessment 41327 Review of Systems Const All systems reviewed & are unremarkable except as noted in HPI and below Eyes Reports no additional complaints ENT Reports no additional complaints Card Reports no additional complaints Resp Reports no additional complaints GI Reports no additional complaints Reports no additional complaints Physical exam (Primary Care) Vital Signs: Last Vital Signs Temp 98.6 F 01/07/25 09:30 Pulse 102 H 01/07/25 09:30 Resp 19 01/07/25 09:30 BP 128/88 01/07/25 09:30 Pulse Ox 98 01/07/25 09:30 Oxygen Delivery Method Room Air 01/07/25 09:30 BMI result Body Mass Index 30.6 Tobacco/Smoking Status: Tobacco use Status Tobacco use date assessed 01/07/25 01/07/25 09:32 Patient Tobacco Use Status Never used Tobacco 01/07/25 09:32 e-Cigarette/Vaping Use Never Used 01/07/25 09:32 PHQ-9: PHQ-9 Score PHQ-9: Total score 6 01/07/25 09:45 Depression Screening Interpretation: Negative Thrive Assessment: Date of Thrive Assessment Date Thrive assessed 01/07/25 01/07/25 09:45 Currently or been in a relationship where the following occur: No concerns reported Const General: no acute distress HENMT Head: Yes normal to inspection Ears: hearing grossly normal bilaterally Face and sinus: Yes normal facial exam Mouth: Normal oral and palatal mucosa present Throat: Yes posterior oropharynx normal Eyes General: appearance normal, both eyes and all related structures Neck Neck: Yes no lymphadenopathy and Yes supple Resp Effort & Inspection: normal respiratory effort Auscultation: clear to auscultation bilaterally Cardio Rhythm: regular rhythm Heart sounds: S1 normal heart sound present and S2 normal heart sound present GI Inspection: Yes normal to inspection Palpation (GI): Soft to palpation Percussion: Yes normal to percussion Auscultation: normal bowel sounds Extrem Other: This is slightly decreased range of motion in the left knee, no joint tenderness erythema warmth General: Yes no clubbing, cyanosis or edema Coding Level of Care Code Est Pt Prev Care 40-64y(60669) Diagnoses Annual physical exam Z00.00 Seasonal allergies J30.2 Amenorrhea N91.2 Additional Codes SANFORD-7 Assessment Billing - SANFORD-7 Assessment Tool: SANFORD-7 Assessment 50893 ([id number]) PHQ-9 - 01637 - PHQ-9 Billing: Yes ([id number]) Assessment & Plan Assessment & Plan (1) Annual physical exam: Code(s): Z00.00 - Encounter for general adult medical examination without abnormal findings Category: Medical Plan: Well-balanced diet regular physical activity discussed with the patient she will return for fasting blood work mammogram will be scheduled. 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 Panel Fast Today E78.5 - Hyperlipidemia, unspecified, Z00.00 - Encounter for general adult medical examination without abnormal findings Lipid Panel Today E78.5 - Hyperlipidemia, unspecified, Z00.00 - Encounter for general adult medical examination without abnormal findings Follicle Stimulating Hormone Today N91.2 - Amenorrhea, unspecified Complete Blood Count Auto Diff Today E78.5 - Hyperlipidemia, unspecified, Z00.00 - Encounter for general adult medical examination without abnormal findings TSH reflex Free T4 Today E78.5 - Hyperlipidemia, unspecified, Z00.00 - Encounter for general adult medical examination without abnormal findings UA w Microscopic Today E78.5 - Hyperlipidemia, unspecified, Z00.00 - Encounter for general adult medical examination without abnormal findings MM screening mammo BI Today Z12.31 - Encounter for screening mammogram for malignant neoplasm of breast XR knee LT 2V Today M25.562 - Pain in left knee Referrals Allergy & Immunology Referral J30.2 - Other seasonal allergic rhinitis
== END 2025-01-07 10:50 | disposition home or self-care (01) ==
LOC: HO.HMCC 09:23
PROVIDERS: PCP Internal Medicine; Visit Provider Internal Medicine
DX: Z00.00 Encounter for general adult medical examination without abnormal findings (principal); J30.2 Other seasonal allergic rhinitis; N91.2 Amenorrhea, unspecified

== ENCOUNTER → 2025-01-07 09:22 | Outpatient (BNVA) | payer OTHER, SELFPAY | PROVIDERS: PCP Internal Medicine; Visit Provider Internal Medicine | DX: Z00.00 Encounter for general adult medical examination without abnormal findings (principal); J30.2 Other seasonal allergic rhinitis; N91.2 Amenorrhea, unspecified; Z13.31 Encounter for screening for depression; Z13.39 Encounter for screening examination for other mental health and behavioral disorders | CPT/HCPCS: 96127; 99396 ==

== ENCOUNTER 2025-02-03 11:01 | Outpatient (REF) | payer OTHER, SELFPAY ==
--- NOTE | ~2025-02-03 | XR_ITS ---
EXAMINATION: XR KNEE, LEFT CLINICAL INFORMATION: M25.562 - Pain in left knee COMPARISON: None available. TECHNIQUE: Two views of the left knee. FINDINGS: Normal alignment. No fracture. Tiny marginal osteophytes in the medial femoral condyle and posterior patella. Joint spaces are preserved. No suprapatellar joint effusion. XR/XR knee LT 2V IMPRESSION: Minimal marginal osteophytes. Electronically signed by: Dao Arana MD 02/03/2025 11:46 AM EDT
[2025-02-03 13:02] LABS: MANUAL DIFF FLAG NO
[2025-02-03 13:13] LABS: Appearance Urine Clear; Glucose Urine UA Negative (Negative); PH 6.0 (5.0-9.0); Specific Gravity - Urine 1.010 (1.005-1.025); UMIC TRIGGER UA YES
[2025-02-03 13:14] LABS: Hematocrit 42.1 % (37.0-47.0); Hemoglobin 13.9 g/dl (12.0-16.0); Imm Gran Abs Auto 0.01 X10*3/uL (0.00-0.03); Imm Gran Pct Auto 0.2 % (0.0-0.4); Lymphocytes Absolute Auto 2.8 X10*3/uL (1.2-4.9); Mean Corpuscular HGB Conc 33.0 g/dl (31.0-35.0); Mean Corpuscular Hemoglobin 28.4 pg (27.0-33.0); Mean Corpuscular Volume 86.1 fL (80.0-98.0); NRBC Abs Auto 0.000 X10*3/uL (0.0-0.012); NRBC Pct Auto 0.0 /100WBC (0.0-0.2); Platelet Count 159 X10*3/uL (160-400); Red Blood Count 4.89 X10*6/uL (4.20-5.50); White Blood Count 5.7 X10*3/uL (4.8-10.8)
[2025-02-03 13:54] LABS: Alanine Aminotransferase 32 U/L (0-31); Albumin Level 4.5 g/dL (3.5-5.0); Alkaline Phosphatase 77 U/L (39-117); Anion Gap 9 (12-20); Aspartate Amino Transferase 38 U/L (5-31); Blood Urea Nitrogen 10 mg/dL (9-16); Calcium 9.3 mg/dL (8.4-10.2); Carbon Dioxide 27 mmol/L (22-29); Chloride 107 mmol/L (96-108); Cholesterol 244 mg/dL (<200); Estimated Glomerular Filt Rate > 60; HDL Cholesterol 71 mg/dL (>40); Potassium 3.7 mmol/L (3.3-5.1); Sodium 139 mmol/L (135-145); Total Protein 7.5 g/dL (6.5-8.0); Triglycerides 70 mg/dL (<150)
[2025-02-04 07:52] LABS: Follicle Stimulating Hormone 136.8 mIU/mL
== END 2025-02-03 11:02 | disposition home or self-care (01) ==
LOC: HO.HMGCX 11:01
PROVIDERS: PCP Internal Medicine; Visit Provider Internal Medicine
DX: Z00.00 Encounter for general adult medical examination without abnormal findings (principal); E78.5 Hyperlipidemia, unspecified; N91.2 Amenorrhea, unspecified; F41.9 Anxiety disorder, unspecified; N85.2 Hypertrophy of uterus; M25.562 Pain in left knee
CPT/HCPCS: 36415; 73560; 80053; 80061; 81001; 83001; 84443; 85025; 87626; 88175; 99212

== ENCOUNTER → 2025-02-03 11:28 | Outpatient (BNV) | payer OTHER, SELFPAY | PROVIDERS: PCP Internal Medicine; Visit Provider Radiology Body Imaging | DX: M25.562 Pain in left knee (principal) | CPT/HCPCS: 73560 ==

== ENCOUNTER 2025-02-03 12:54 | Outpatient (AMB) | payer OTHER, SELFPAY ==
[2025-02-03 13:22] VITALS: BP 120/74; PULSE 99; RESP 19; TEMP 36.7; O2SAT 97; BMI 30.6
--- NOTE | 2025-02-03 13:22 | MHC.PC.OV ---
Vital Signs 02/03/25 13:22 Height 5 ft 7.5 in Weight 198 lb BMI 30.6 BP 120/74 Blood Pressure Location Lt brachial Position Sitting Respiration 19 Pulse 99 Pulse Source Pulse Oximeter Temp 98.0 F Temp Source Oral Pulse Oximetry (%) 97 Oxygen Delivery Method Room Air Intake Visit Reasons: PAP ok per Intake Note: Pt is here today for a pap. Allergies pollen extracts Allergy (Mild, Verified 02/03/25 13:25) Unknown tree nut Allergy (Mild, Verified 02/03/25 13:25) Unknown hazelnut Allergy (Verified 02/03/25 13:25) deadly allergy moxifloxacin (From Avelox) Allergy (Verified 02/03/25 13:25) severe rash bumps itchiness penicillin V Allergy (Verified 02/03/25 13:25) severe rash bumps Sulfa (Sulfonamide Antibiotics) Allergy (Verified 02/03/25 13:25) Vomiting raw onions Allergy (Mild, Uncoded 02/03/25 13:25) Unknown seeds Allergy (Mild, Uncoded 02/03/25 13:25) Unknown oatmeal Allergy (Uncoded 02/03/25 13:25) rash Medication List - Last Reconciled 02/03/25 by Geno Ugarte MD cetirizine (Zyrtec) 10 mg PO DAILY PRN epinephrine 0.3 mg (0.3 mL) IM Q10M PRN Tobacco use date assessed: 02/03/25 Dental Screening Dental Screen Date: 01/07/25 HPI PAP ok per HPI Details Patient presents for a follow-up Pap smear. Anxiety has improved since patient was offered a new job. [facility] Medical History (Updated 02/03/25 @ 13:46 by Geno Ugarte MD) Knee pain, left Annual physical exam Tubular adenoma Seasonal allergies Anxiety Surgical History Hx of tooth extraction Hx of arthroscopic knee surgery Hx of colonoscopy Family History Father Hypertension Colon cancer Mother Hypertension Paternal Grandmother Lung cancer Maternal Grandmother Cancer Paternal Uncle Colon cancer Maternal Grandfather Acute basophilic leukemia Paternal Grandmother Lung cancer Family/Other Hodgkin disease Social History Household Members Other:: lives alone, Housing: House Patient Tobacco Use Status: Never used Tobacco e-Cigarette/Vaping Use: Never Used service: No Current occupational status: employed Cognitive needs: No Hearing needs: No Vision needs: Yes Questionnaire Thrive Questionnaire Date Thrive assessed: 01/07/25 I am a: Patient What is your living situation today?: I have a place to live, but I am worried about losing it in the future Within the past 12 months, did the food you bought not last and you didn't have the money to get more?: Never true Within the past 12 months, did you worry whether your food would run out before you got money to buy more?: Never true Do you have trouble paying for medicines?: No Do you have trouble getting transportation to medical appointments?: No Do you have trouble paying your heating and electricity bill?: Yes Do you have trouble taking care of your child, family member or friend?: No Do you have trouble with day-to-day activities such as bathing, preparing meals, shopping, managing finances, etc.?: No Are you currently unemployed and looking for a job?: Yes Are you interested in more education?: No Please select the resources that you would like help with: None Currently or been in a relationship where the following occur: No concerns reported THRIVE Score: 2 SANFORD-7 AMB Questionnaire SANFORD-7 Date SANFORD - 7 assessed: 01/07/25 Source: Developed by Drs. Solitario Mejia, Ariana Copeland, Lucas Mcgowan and colleagues, with an educational rick from [employer]. Review of Systems Const All systems reviewed & are unremarkable except as noted in HPI and below ENT Reports no additional complaints Card Reports no additional complaints Resp Reports no additional complaints GI Reports no additional complaints Reports no additional complaints Physical exam (Primary Care) Vital Signs: Last Vital Signs Temp 98.0 F 02/03/25 13:22 Pulse 99 02/03/25 13:22 Resp 19 02/03/25 13:22 BP 120/74 02/03/25 13:22 Pulse Ox 97 02/03/25 13:22 Oxygen Delivery Method Room Air 02/03/25 13:22 BMI result Body Mass Index 30.6 Tobacco/Smoking Status: Tobacco use Status Tobacco use date assessed 02/03/25 02/03/25 13:30 Patient Tobacco Use Status Never used Tobacco 02/03/25 13:30 e-Cigarette/Vaping Use Never Used 02/03/25 13:22 Thrive Assessment: Date of Thrive Assessment Date Thrive assessed 01/07/25 02/03/25 13:22 Currently or been in a relationship where the following occur: No concerns reported Const General: no acute distress HENMT Head: Yes normal to inspection Face and sinus: Yes normal facial exam Neck Neck: Yes supple Resp Effort & Inspection: normal respiratory effort Auscultation: clear to auscultation bilaterally Cardio Rhythm: regular rhythm Heart sounds: S1 normal heart sound present and S2 normal heart sound present Speculum Exam - Cervix: normal appearance of the cervix Bimanual exam- vagina & uterus: enlarged Coding Level of Care Code Est Pt Level 3 (11781) Diagnoses Enlarged uterus N85.2 Assessment & Plan Assessment & Plan (1) Enlarged uterus: Code(s): N85.2 - Hypertrophy of uterus Category: Medical Plan: Pap smear was done. Pelvic ultrasound will be obtained to evaluate for enlarged uterus. Patient has a history of uterine fibroids Orders: Orders US pelvic and transvaginal Today N85.2 - Hypertrophy of uterus Pap Smear Today Z00.00 - Encounter for general adult medical examination without abnormal findings
== END 2025-02-03 13:55 | disposition home or self-care (01) ==
LOC: HO.HMCC 12:55
PROVIDERS: PCP Internal Medicine; Visit Provider Internal Medicine
DX: N85.2 Hypertrophy of uterus (principal)

== ENCOUNTER 2025-02-03 13:57 | Outpatient (REF) | payer OTHER, SELFPAY | END 2025-02-03 13:58 | disposition home or self-care (01) | LOC: HO.LNP 13:57 | PROVIDERS: Visit Provider Internal Medicine | DX: Z13.89 Encounter for screening for other disorder (principal) | CPT/HCPCS: 87626; 88175 ==

== ENCOUNTER 2025-03-20 07:50 | Outpatient (REF) | payer OTHER, SELFPAY ==
--- NOTE | ~2025-03-20 | MM_ITS ---
EXAMINATION: MM SCREENING DIGITAL BREAST TOMOSYNTHESIS, BILATERAL CLINICAL INFORMATION: Screening. Asymptomatic. COMPARISON: Mammography: Comparison is made with available priors TECHNIQUE: Digital breast mammography with tomosynthesis is performed in both the craniocaudal and mediolateral oblique views along with computer-aided detection (CAD). FINDINGS: The breasts are heterogeneously dense, which may obscure small masses. There are no significant masses, abnormal calcifications, or other abnormalities. MM/MM tomosynthesis screening BI IMPRESSION: No mammographic evidence of malignancy. ASSESSMENT: BI-RADS Category 1: Negative RECOMMENDATION: Routine annual mammography screening. 1 year F/U This examination should not preclude the clinical evaluation of a suspicious palpable abnormality. This patient's information was entered into a reminder system with a target due date for their next mammogram. Electronically signed by: Nathaly Stanford DO 03/23/2025 10:42 AM CAR[facility]
== END 2025-03-20 07:51 | disposition home or self-care (01) ==
LOC: HO.MAMMO 07:50
PROVIDERS: PCP Internal Medicine; Visit Provider Internal Medicine
DX: Z12.31 Encounter for screening mammogram for malignant neoplasm of breast (principal)
CPT/HCPCS: 77063; 77067

== ENCOUNTER → 2025-03-20 08:00 | Outpatient (BNV) | payer OTHER, SELFPAY | PROVIDERS: PCP Internal Medicine; Visit Provider Internal Medicine | DX: Z12.31 Encounter for screening mammogram for malignant neoplasm of breast (principal) | CPT/HCPCS: 77063; 77067 ==